=== PATIENT | male | born 1990 | race Caucasian/White ===

== ENCOUNTER 2018-09-30 15:47 | Emergency (ER) | payer SELFPAY ==
[~2018-09-30] VITALS: Ht 175.3 cm; Wt 81.6 kg
--- NOTE | 2018-09-30 16:00 | NUR ---
Patient being evaluated by physician at bedside.
[2018-09-30 16:02] VITALS: BP 137/97
[2018-09-30] MEDS ORDERED: KETOROLAC 60 MG/2 ML VIAL IM ONE (16:35)
--- NOTE | 2018-09-30 16:35 | NUR ---
PT. ARRIVED TO ED DUE TO RLQ PAIN X 1 MONTH THAT RADIATES TO ALL OF ABD. PT STATES " I WAS AT WORK AND I LIFTED SOMETHING HEAVY AND SINCE THEN IT HAS BEEN HURTING". DENIES ANY N/V/D. LBM : YESTERDAY. MED HX: NONE ALLERGIES : NONE
[2018-09-30 17:23] VITALS: BP 137/97
--- NOTE | 2018-09-30 17:23 | NUR ---
Patient discharged with v/s stable. Written and verbal after care instructions given and explained. Patient alert, oriented and verbalized understanding of instructions. Ambulatory with steady gait. All questions addressed prior to discharge. ID band removed. Patient advised to follow up with PMD. Rx of TRAMADOL, MOTRIN given. Patient educated on indication of medication including possible reaction and side effects. Opportunity to ask questions provided and answered.
== END 2018-09-30 17:23 | disposition home or self-care (01) ==
LOC: MED 15:47
DX: S39.011A Strain of muscle, fascia and tendon of abdomen, initial encounter (principal); X50.0XXA Overexertion from strenuous movement or load, initial encounter; Y93.89 Activity, other specified; Y92.89 Other specified places as the place of occurrence of the external cause; Y99.0 Civilian activity done for income or pay
CPT/HCPCS: 74176; 96372; 99284; J1885